=== PATIENT | female | born 1970 | race Caucasian/White ===

== ENCOUNTER 2021-07-26 15:25 | Inpatient (IN) | payer OTHER ==
[2021-07-26] MEDS ORDERED: MAGNESIUM CITRATE 300 ML BOTTLE PO PRN (17:35)
[2021-07-26] MEDS ORDERED: NICOTINE 10 MG CARTRIDGE (INHALER) IH PRN (17:35)
[2021-07-26] MEDS ORDERED: MAG HYDROX/AL HYDROX/SIMETH 30 ML UNIT-DOSE CUP PO PRN (17:35)
[2021-07-26] MEDS ORDERED: MAGNESIUM HYDROX 2400MG/30ML ORAL SUSPENSION 30 ML CUP PO PRN (17:35)
[2021-07-26] MEDS ORDERED: ONDANSETRON *ODT* 4 MG TABLET SL PRN (17:35)
[2021-07-26] MEDS ORDERED: MENTHOL/PHENOL 1 EACH UD MM PRN (17:35)
[2021-07-26] MEDS ORDERED: IBUPROFEN 400 MG TABLET (FP) PO PRN (17:35)
[2021-07-26] MEDS ORDERED: ACETAMINOPHEN 325 MG TABLET (FP) PO PRN ×2 (17:35)
[2021-07-26] MEDS ORDERED: BISMUTH SUBSALICYLATE 524 MG/30 ML PO PRN (17:35)
[2021-07-26] MEDS ORDERED: METHOCARBAMOL 500 MG TABLET PO PRN (17:35)
[2021-07-26 17:56] VITALS: BMI 25.4
[2021-07-26] MEDS: diazePAM 5 MG TABLET PO PRN (19:49)
[2021-07-26] MEDS: hydrOXYzine PAMOATE 25 MG CAPSULE (FP) PO SCH ×2 (19:51→22:20)
[2021-07-26] MEDS: diazePAM 5 MG TABLET PO SCH ×2 (20:10→22:21)
[2021-07-26] MEDS: THIAMINE HCL 100 MG TABLET (FP) PO SCH (22:20)
[2021-07-26] MEDS: MELATONIN 5 MG TABLETS PO SCH (22:21)
[2021-07-27] MEDS: hydrOXYzine PAMOATE 25 MG CAPSULE (FP) PO SCH ×3 (05:49→14:15)
[2021-07-27] MEDS: diazePAM 5 MG TABLET PO SCH ×4 (05:49→22:06)
[2021-07-27] MEDS: PRENATAL VITAMINS W/ FOLIC ACID TABLET (FP) PO SCH (10:18)
[2021-07-27 11:03] LABS: HEMATOCRIT 43.1 % (32.4-45.2); HEMOGLOBIN 14.8 GM/dL (10.7-15.3); MCH 28.9 pg (25.7-33.7); MCHC 34.3 g/dl (32.0-36.0); MEAN CELL VOLUME 84.2 fl (80-96); PLATELET COUNT 293 10^3/uL (134-434); RBC 5.11 M/mm3 (3.60-5.2); RDW 15.6 % (11.6-15.6); WHITE BLOOD COUNT 8.7 K/mm3 (4.0-10.0)
[2021-07-27 11:31] LABS: CHLORIDE 91 mmol/L (98-107); SODIUM 137 mmol/L (136-145)
[2021-07-27 11:35] LABS: GLUCOSE,RANDOM 101 mg/dL (74-106)
[2021-07-27 11:36] LABS: ALBUMIN 4.1 g/dl (3.4-5.0); BLOOD UREA NITROGEN 11.5 mg/dL (7-18); CALCIUM 10.6 mg/dL (8.5-10.1); CO2 37 mmol/L (21-32)
[2021-07-27 11:38] LABS: CREATININE 0.6 mg/dL (0.55-1.3)
[2021-07-27 11:39] LABS: SGOT/AST 19 U/L (15-37); SGPT/ALT 25 U/L (13-61)
[2021-07-27 11:40] LABS: BILIRUBIN,TOTAL 0.6 mg/dL (0.2-1); TOT PROT 7.9 g/dl (6.4-8.2)
[2021-07-27 11:41] LABS: ALK PHOS 121 U/L (45-117)
[2021-07-27 11:43] LABS: ANION GAP 9 MMOL/L (8-16)
[2021-07-27] MEDS: POTASSIUM CHLORIDE ORAL LIQUID 20 MEQ/15 ML PO SCH ×3 (14:15→22:06)
[2021-07-27] MEDS ORDERED: hydrOXYzine PAMOATE 25 MG CAPSULE (FP) PO PRN (14:28)
[2021-07-27] MEDS: amLODIPine BESYLATE 10 MG TABLET (FP) PO SCH (15:46)
[2021-07-27] MEDS: CYPROHEPTADINE HCL 4 MG TABLET PO SCH ×2 (15:47→22:06)
[2021-07-27] MEDS: VITAMINS A AND D TOPICAL OINTMENT 60 GM TUBE TP SCH (18:04)
[2021-07-27] MEDS: IBUPROFEN 600 MG TABLET (FP) PO PRN (18:55)
[2021-07-27] MEDS: QUEtiapine FUMARATE 300 MG TABLET PO SCH (22:06)
[2021-07-27] MEDS: THIAMINE HCL 100 MG TABLET (FP) PO SCH (22:06)
[2021-07-27] MEDS: MELATONIN 5 MG TABLETS PO SCH (22:06)
[2021-07-28] MEDS: VITAMINS A AND D TOPICAL OINTMENT 60 GM TUBE TP SCH ×4 (00:03→17:40)
[2021-07-28] MEDS: CYPROHEPTADINE HCL 4 MG TABLET PO SCH ×3 (05:42→22:19)
[2021-07-28] MEDS: diazePAM 5 MG TABLET PO SCH ×3 (05:43→22:21)
[2021-07-28] MEDS: PATIENT'S OWN MEDICATION (NON-FORMULARY) (Omeprazole [Omeprazole] 10 MG Capsule.Dr) PO SCH (10:14)
[2021-07-28] MEDS: LISINOPRIL 10 MG TABLET PO SCH (10:14)
[2021-07-28] MEDS: PRENATAL VITAMINS W/ FOLIC ACID TABLET (FP) PO SCH (10:14)
[2021-07-28] MEDS: amLODIPine BESYLATE 10 MG TABLET (FP) PO SCH (10:14)
[2021-07-28] MEDS: diazePAM 5 MG TABLET PO PRN (10:15)
[2021-07-28] MEDS: IBUPROFEN 600 MG TABLET (FP) PO PRN ×2 (13:12→22:19)
[2021-07-28] MEDS: QUEtiapine FUMARATE 300 MG TABLET PO SCH (22:18)
[2021-07-28] MEDS: THIAMINE HCL 100 MG TABLET (FP) PO SCH (22:18)
[2021-07-28] MEDS: MELATONIN 5 MG TABLETS PO SCH (22:21)
[2021-07-28] MEDS: POTASSIUM CHLORIDE ORAL LIQUID 20 MEQ/15 ML PO SCH (22:21)
[2021-07-29] MEDS: VITAMINS A AND D TOPICAL OINTMENT 60 GM TUBE TP SCH ×4 (01:00→18:02)
[2021-07-29] MEDS: IBUPROFEN 600 MG TABLET (FP) PO PRN ×2 (03:21→21:30)
[2021-07-29] MEDS: CYPROHEPTADINE HCL 4 MG TABLET PO SCH ×3 (05:54→21:30)
[2021-07-29] MEDS: diazePAM 5 MG TABLET PO SCH ×2 (05:54→18:01)
[2021-07-29] MEDS: LISINOPRIL 10 MG TABLET PO SCH (10:32)
[2021-07-29] MEDS: amLODIPine BESYLATE 10 MG TABLET (FP) PO SCH (10:32)
[2021-07-29] MEDS: PATIENT'S OWN MEDICATION (NON-FORMULARY) (Omeprazole [Omeprazole] 10 MG Capsule.Dr) PO SCH (10:33)
[2021-07-29] MEDS: PRENATAL VITAMINS W/ FOLIC ACID TABLET (FP) PO SCH (10:33)
[2021-07-29] MEDS: diazePAM 5 MG TABLET PO PRN (10:35)
[2021-07-29] MEDS: POTASSIUM CHLORIDE ORAL LIQUID 20 MEQ/15 ML PO SCH (12:06)
[2021-07-29] MEDS: MELATONIN 5 MG TABLETS PO SCH (21:31)
[2021-07-29] MEDS: QUEtiapine FUMARATE 300 MG TABLET PO SCH (21:31)
[2021-07-29] MEDS: THIAMINE HCL 100 MG TABLET (FP) PO SCH (21:34)
[2021-07-30] MEDS: VITAMINS A AND D TOPICAL OINTMENT 60 GM TUBE TP SCH ×2 (00:20→05:44)
[2021-07-30] MEDS: CYPROHEPTADINE HCL 4 MG TABLET PO SCH (05:44)
[2021-07-30] MEDS ORDERED: diazePAM 5 MG TABLET PO ONE (06:00)
[2021-07-30 09:10] VITALS: BP 104/70; PULSE 90; TEMP 96.7
[2021-07-30] MEDS: PATIENT'S OWN MEDICATION (NON-FORMULARY) (Omeprazole [Omeprazole] 10 MG Capsule.Dr) PO SCH (09:18)
[2021-07-30] MEDS: LISINOPRIL 10 MG TABLET PO SCH (09:19)
[2021-07-30] MEDS: amLODIPine BESYLATE 10 MG TABLET (FP) PO SCH (09:19)
== END 2021-07-30 09:49 | disposition home or self-care (01) | DRG 897 ==
LOC: EDBD → YASAS 15:25 → Y6N 18:27
PROVIDERS: ADMIT Allergy & Immunology; ATTEND Allergy & Immunology
PROC: HZ2ZZZZ Detoxification Services for Substance Abuse Treatment (ICD-10-PCS; principal; 2021-07-26)
DX: F10.230 Alcohol dependence with withdrawal, uncomplicated (principal); F32.3 Major depressive disorder, single episode, severe with psychotic features; F10.24 Alcohol dependence with alcohol-induced mood disorder; F43.10 Post-traumatic stress disorder, unspecified; E87.6 Hypokalemia; I10 Essential (primary) hypertension; K21.9 Gastro-esophageal reflux disease without esophagitis; Z87.828 Personal history of other (healed) physical injury and trauma
CPT/HCPCS: 36415; 80053; 81025; 84132; 85027; 86780; C9803; U0003; U0005